=== PATIENT | female | born 1990 ===

== ENCOUNTER → 2016-12-07 | Outpatient (CLI) | payer OTHER ==
[2016-12-07 18:27] LABS: PREG INTERNAL NEGATIVE QC NEG CLEAR BACKGROUND; PREG INTERNAL POSITIVE QC POS CONTROL LINE
== END | disposition home or self-care (01) ==
LOC: C.LABSPEC 17:42
PROVIDERS: ATTEND Family Medicine
DX: R30.0 Dysuria (principal); N91.0 Primary amenorrhea

== ENCOUNTER → 2017-03-26 | Outpatient (CLI) | payer OTHER | END | disposition home or self-care (01) | LOC: C.LABSPEC 18:27 | PROVIDERS: ATTEND Family Medicine | DX: N91.0 Primary amenorrhea (principal) ==

== ENCOUNTER → 2017-03-26 | Outpatient (CLI) | payer OTHER | END | disposition home or self-care (01) | LOC: C.LABSPEC 18:21 | PROVIDERS: ATTEND Family Medicine | DX: R05 Cough (principal) ==